=== PATIENT | female | born 1970 | race Caucasian/White ===

== ENCOUNTER 2021-01-24 13:50 | Emergency (ER) | payer BC ==
[~2021-01-24] VITALS: Ht 172.7 cm; Wt 99.8 kg
[2021-01-24 15:33] LABS: HEMOGLOBIN 15.1 gm/dl (12.3-15.3); RED BLOOD COUNT 4.81 M/UL (4.00-5.10); WHITE BLOOD COUNT 6.2 K/UL (4.5-11.0)
[2021-01-24 15:59] LABS: BUN/CREATININE RATIO 21 (0-10)
[2021-01-24] MEDS ORDERED: VENLAFAXINE HC150 MG PO (17:11)
[2021-01-24] MEDS ORDERED: ZYRTEC10 MG PO (17:12)
[2021-01-24] MEDS ORDERED: IBUPROFEN IB200 MG PO (17:13)
[2021-01-24] MEDS ORDERED: TYLENOL EXTRA500 MG PO (17:13)
[2021-01-24] MEDS ORDERED: NAPROXEN SODIU550 MG PO (17:13)
== END 2021-01-24 19:20 | disposition left against medical advice (07) ==
LOC: ER1 13:50 → CDU 16:25 → ER1 19:20
PROVIDERS: Emergency Medicine
DX: R55 Syncope and collapse (principal); I10 Essential (primary) hypertension; Z20.822 Contact with and (suspected) exposure to COVID-19
CPT/HCPCS: 70450; 71045; 80053; 82550; 82553; 83874; 84484; 85025; 85379; 93005; 99285; Q9967; U0002

== ENCOUNTER → 2021-01-31 | Outpatient (CLI) | payer BC ==
[~2021-01-31] MED LIST: IBUPROFEN IB200 MG PO; NAPROXEN SODIU550 MG PO; TYLENOL EXTRA500 MG PO; VENLAFAXINE HC150 MG PO; ZYRTEC10 MG PO
== END ==
LOC: HEART 5 07:54
DX: R07.9 Chest pain, unspecified (principal); R55 Syncope and collapse

== ENCOUNTER → 2021-02-13 | Outpatient (CLI) | payer BC | LOC: HEART 5 09:13 | DX: R06.02 Shortness of breath (principal) | CPT/HCPCS: 94060 ==

== ENCOUNTER → 2021-09-18 | Outpatient (CLI) | payer BC | LOC: KOH-I 11:46 | DX: M79.642 Pain in left hand (principal); M79.89 Other specified soft tissue disorders | CPT/HCPCS: 73130 ==